=== PATIENT | female | born 1985 | race Hispanic/Latino ===

== ENCOUNTER 2018-08-09 12:40 | Emergency (ER) | payer BC ==
[2018-08-09 13:22] LABS: Bilirubin Negative (Negative); Blood, Urine Negative (Negative); Clarity Clear (Clear); Glucose, Urine (Dipstick) Negative (Negative); Leukocyte Negative (Negative); Nitrite Negative (Negative); Protein, Urine (Dipstick) Negative (Neg-Trace); Urobilinogen 0.2 mg/dL (0.2-1.0); pH, Urine 6.5 (5.0-9.0)
[2018-08-09] MEDS ORDERED: Ondansetron ODT 4 MG TAB ONE (13:27)
[2018-08-09 13:41] LABS: #Basophils 0.1 thou/uL (0.0-0.2); #Eosinphils 0.1 thou/uL (0.0-0.7); #Lymphocytes 1.6 thou/uL (1.20-3.40); #Monocytes 0.6 thou/uL (0.11-0.59); #Neutrophils 5.7 thou/uL (1.40-6.50); %Basophils 0.7 % (0.0-1.0); %Eosinophils 1.4 % (0.0-10.0); %Lymphocytes 19.3 % (21.0-51.0); %Monocytes 7.6 % (0.0-10.0); %Neutrophils 71.1 % (42.0-75.0); Hemoglobin 13.5 g/dL (12.0-16.0); Mean Corpuscular HGB CONC 33.5 g/dL (32.0-36.0); Mean Corpuscular Hemoglobin 30.6 pg (27.0-31.0); Mean Corpuscular Volume 91.1 fL (78.0-98.0); Mean Platelet Volume 7.1 fL (7.4-10.4); Platelet Count 274 thou/uL (130-400); RBC Distribution Width 11.8 % (11.5-14.5); Red Blood Cell (RBC) Count 4.42 mill/uL (4.20-5.40); White Blood Cell (WBC) Count 8.1 thou/uL (4.8-10.8)
[2018-08-09 13:54] LABS: BHCG - Serum Negative (NEGATIVE); Pregs Control Background? CLEAR/WHITE (CLR/WHITE); Pregs Control Bar Appear? YES (CONTROL BAR)
[2018-08-09 13:59] LABS: ALT (SGPT) 29 U/L (8-55); AST (SGOT) 22 U/L (5-34); Albumin 3.8 g/dL (3.5-5.0); Alkaline Phosphatase 90 U/L (40-150); Anion Gap 13 mmol/L (10-20); BUN (Urea Nitrogen) 9 mg/dL (7.0-18.7); Bilirubin, Total 0.2 mg/dL (0.2-1.2); Calc. Creatinine Clearance 0 mL/min (70-130); Calcium 9.2 mg/dL (7.8-10.44); Carbon Dioxide 24 mmol/L (22-29); Chloride 106 mmol/L (98-107); Estimated GFR-MDRD Greater than 90; Globulin 3.2 g/dL (2.4-3.5); Glucose 100 mg/dL (70-105); Lipase 14 U/L (8-78); Potassium 4.1 mmol/L (3.5-5.1); Sodium 139 mmol/L (136-145)
== END 2018-08-09 14:27 | disposition home or self-care (01) ==
LOC: SCSER 12:40
DX: R11.2 Nausea with vomiting, unspecified (principal); R19.7 Diarrhea, unspecified; E03.9 Hypothyroidism, unspecified; R73.03 Prediabetes
CPT/HCPCS: 36415; 80053; 81003; 83690; 84703; 85025; 87804; 99284; Q0162

== ENCOUNTER 2018-10-12 18:39 | Emergency (ER) | payer BC ==
[2018-10-12 19:14] LABS: Bilirubin Small (Negative); Blood, Urine Negative (Negative); Clarity CLEAR (Clear); Glucose, Urine (Dipstick) Negative (Negative); Leukocyte Negative (Negative); Nitrite Negative (Negative); Protein, Urine (Dipstick) 30 mg/dL (Neg-Trace); Specific Gravity, Urine 1.039 (1.002-1.036); Urobilinogen 0.2 mg/dL (0.2-1.0)
[2018-10-12 19:17] LABS: Pathc Cast-AUWi Flag 8.43 (0-2.49)
[2018-10-12 19:18] LABS: Pregnancy Test - Urine (BHCG) Negative (Negative)
[2018-10-12 19:19] LABS: Pregu Control Background? CLEAR/WHITE (CLR/WHITE); Pregu Control Bar Appear? YES (CONTROL BAR); Specific Gravity 1.039 (1.002-1.036)
[2018-10-12 19:26] LABS: Bacteria/HPF 1+ HPF (None Seen); Hyaline Casts/LPF NONE SEEN LPF (0-3 Hyaline); Manual Microscopic Reviewed? No Path Casts Seen; Renal Epithelial None Seen HPF (0-3); Transitional Epithelial NONE SEEN HPF (0-3)
[2018-10-12] MEDS ORDERED: Ketorolac Tromethamine 30 MG/ML VIAL ONE (21:04)
[2018-10-12 21:14] LABS: ALT (SGPT) 18 U/L (8-55); AST (SGOT) 23 U/L (5-34); Albumin 3.8 g/dL (3.5-5.0); Alkaline Phosphatase 73 U/L (40-150); Anion Gap 14 mmol/L (10-20); BUN (Urea Nitrogen) 11 mg/dL (7.0-18.7); Bilirubin, Total 0.3 mg/dL (0.2-1.2); CK (CPK) 90 U/L (29-168); Calc. Creatinine Clearance 0 mL/min (70-130); Calcium 8.9 mg/dL (7.8-10.44); Carbon Dioxide 21 mmol/L (22-29); Chloride 104 mmol/L (98-107); Estimated GFR-MDRD Greater than 90; Globulin 3.4 g/dL (2.4-3.5); Glucose 119 mg/dL (70-105); Lipase 7 U/L (8-78); Potassium 3.6 mmol/L (3.5-5.1); Protein, Total 7.2 g/dL (6.0-8.3); Sodium 135 mmol/L (136-145)
[2018-10-12 21:29] LABS: Band 23 % (5-11); Hemoglobin 14.5 g/dL (12.0-16.0); Lymphocytes 4 % (21-51); MDiff Complete? YES; Mean Corpuscular HGB CONC 33.4 g/dL (32.0-36.0); Mean Corpuscular Hemoglobin 32.4 pg (27.0-31.0); Mean Corpuscular Volume 97.2 fL (78.0-98.0); Mean Platelet Volume 6.7 fL (7.4-10.4); Monocytes 1 % (0-10); Neutrophil 72 % (42-75); Platelet Count 288 thou/uL (130-400); RBC Distribution Width 11.6 % (11.5-14.5); Red Blood Cell (RBC) Count 4.48 mill/uL (4.20-5.40); White Blood Cell (WBC) Count 14.4 thou/uL (4.8-10.8)
--- NOTE | 2018-10-12 22:03 | ULT ---
PELVIC ULTRASOUND: 10/12/2018 HISTORY: Pain. Evaluate for torsion. COMPARISON: None. TECHNIQUE: Multiplanar cardenas-scale sonographic imaging of the pelvis obtained with transabdominal and endovaginal imaging. The right ovary is assessed with color-flow and spectral analysis. FINDINGS: No free fluid is seen in the pelvis. The uterus measures 7 x 2.6 x 3.3 cm. The endometrial stripe m easures 3 mm in thickness, within normal limits. The right ovary measures 2 x 0.9 x 1.3 cm and demonstrates normal blood flow without evidence for mas s. The left ovary could not be visualized on this exam. IMPRESSION: Grossly unremarkable pelvic ultrasound. The left ovary could not be visualized on this examination. POS: RUDY
--- NOTE | 2018-10-12 22:50 | CT ---
CT ABDOMEN AND PELVIS: 10/12/2018 HISTORY: Pain. COMPARISON: None. TECHNIQUE: Axial CT imaging is obtained at 5 mm intervals, from the lung bases through the pubic symphysis, with out contrast. Coronal reformatted imaging obtained. FINDINGS: The lack of contrast media limits assessment of the viscera, bowel, vascular structures, and for lymp hadenopathy. The imaged lung bases are unremarkable. No free intraperitoneal air is seen. The liver, gallbladder, and spleen are unremarkable. The pancreas, adrenal glands, and kidneys appea r unremarkable. There is prominent wall thickening involving the colon, from the level of the cecum through the level of the proximal transverse colon, with pericolonic fat stranding on the right. There are a few asso ciated adjacent mildly enlarged mesenteric lymph nodes, medial to the thickened right colon. The bethany endix appears unremarkable. The osseous structures demonstrate no acute findings. IMPRESSION: There is prominent colonic wall thickening from the level of the cecum through the level of the hepat ic flexure/proximal transverse colon, evidence of a nonspecific colitis, likely inflammatory/infectio us in nature. No evidence for appendicitis or free intraperitoneal air. Recommend direct visualizat ion via colonoscopy following treatment, to exclude an underlying colonic mass lesion. CODE T POS: RUDY
[2018-10-14 02:54] LABS: Chlamydia by PCR Not Detected (NotDetected); GC by PCR Not Detected (NotDetected)
== END 2018-10-12 23:15 | disposition home or self-care (01) ==
LOC: ERS 18:39
DX: K52.9 Noninfective gastroenteritis and colitis, unspecified (principal); E03.9 Hypothyroidism, unspecified
CPT/HCPCS: 36415; 74176; 76856; 80053; 81003; 81015; 81025; 82550; 83690; 85025; 87480; 87491; 87510; 87591; 87660; 96361; 96374; J1885

== ENCOUNTER 2019-02-10 19:43 | Emergency (ER) | payer BC ==
[~2019-02-10 19:43] MED LIST: ISOVUE-370 76%-LOCM 1 ML ONE
[2019-02-10 20:08] LABS: #Lymphocytes 1.4 thou/uL (1.20-3.40); #Monocytes 0.8 thou/uL (0.11-0.59); #Neutrophils 5.4 thou/uL (1.40-6.50); %Basophils 0.4 % (0.0-1.0); %Eosinophils 0.4 % (0.0-10.0); %Lymphocytes 18.7 % (21.0-51.0); %Monocytes 9.7 % (0.0-10.0); %Neutrophils 70.8 % (42.0-75.0); Hemoglobin 14.1 g/dL (12.0-16.0); Mean Corpuscular HGB CONC 33.9 g/dL (32.0-36.0); Mean Corpuscular Hemoglobin 32.7 pg (27.0-31.0); Mean Corpuscular Volume 96.5 fL (78.0-98.0); Mean Platelet Volume 6.5 fL (7.4-10.4); Platelet Count 324 thou/uL (130-400); RBC Distribution Width 11.4 % (11.5-14.5); Red Blood Cell (RBC) Count 4.31 mill/uL (4.20-5.40); White Blood Cell (WBC) Count 7.7 thou/uL (4.8-10.8)
[2019-02-10 20:17] LABS: BHCG - Serum Negative (NEGATIVE); Pregs Control Background? CLEAR/WHITE (CLR/WHITE); Pregs Control Bar Appear? YES (CONTROL BAR)
[2019-02-10 20:22] LABS: Clarity Clear (Clear); Glucose, Urine (Dipstick) Negative (Negative); Leukocyte Negative (Negative); Nitrite Negative (Negative); Protein, Urine (Dipstick) Negative (Neg-Trace); Urobilinogen 0.2 mg/dL (0.2-1.0); pH, Urine 6.5 (5.0-9.0)
[2019-02-10 20:23] LABS: Bilirubin Negative (Negative); Blood, Urine Negative (Negative)
[2019-02-10 20:30] LABS: ALT (SGPT) 16 U/L (8-55); AST (SGOT) 20 U/L (5-34); Albumin 4.2 g/dL (3.5-5.0); Alkaline Phosphatase 72 U/L (40-150); Anion Gap 15 mmol/L (10-20); BUN (Urea Nitrogen) 12 mg/dL (7.0-18.7); Bilirubin, Total 0.4 mg/dL (0.2-1.2); Calc. Creatinine Clearance 0 mL/min (70-130); Calcium 9.8 mg/dL (7.8-10.44); Carbon Dioxide 25 mmol/L (22-29); Chloride 101 mmol/L (98-107); Estimated GFR-MDRD Greater than 90; Globulin 3.5 g/dL (2.4-3.5); Glucose 94 mg/dL (70-105); Lipase 8 U/L (8-78); Protein, Total 7.7 g/dL (6.0-8.3); Sodium 137 mmol/L (136-145)
--- NOTE | 2019-02-10 21:58 | CT ---
Contrast-enhanced images abdomen pelvis. HISTORY: Left-sided abdominal pain. Contrast-enhanced images of the abdomen pelvis demonstrate the lung bases to be unremarkable. The liver contains a hypodense area seen in the posterior aspect of the right hepatic lobe axial imag e #[id number]. This may represent a hemangioma or other hepatic masses. Further workup using MRI electively may be of use. The rest the liver is unremarkable. The spleen is unremarkable. Gallbladder and pancreas are unremarkable. Adrenal glands unremarkable. The kidneys are unremarkable. No dilated loops of small bowel seen. The appendix is unremarkable. The colon demonstrates no significant evidence of masses or lesions in the proximal and transverse po rtion. The descending colon demonstrates some thickening throughout the descending and sigmoid colon concerning for possible colitis. IMPRESSION: Descending and sigmoid colonic thickening concerning for possible colitis.
[2019-02-11] MEDS ORDERED: Ondansetron PF 4 MG/2 ML Vial ONE
[2019-02-11] MEDS ORDERED: Ketorolac Tromethamine 30 MG/ML VIAL ONE
== END 2019-02-11 00:16 | disposition home or self-care (01) ==
LOC: ERS 19:43
DX: K52.9 Noninfective gastroenteritis and colitis, unspecified (principal); R73.03 Prediabetes; E03.9 Hypothyroidism, unspecified
CPT/HCPCS: 36415; 74177; 80053; 81003; 83690; 84703; 85025; 96374; 96375; J1885; J2405; Q9966